=== PATIENT | male | born 1950 | race Caucasian/White ===

== ENCOUNTER 2017-01-23 09:24 | Inpatient (IN) | payer BC ==
--- NOTE | ~2017-01-23 | HP ---
History And Physical [place] [id number] [facility] [place]. [address] NAME: ISSA ALVAERZ SR : 48 STATUS : ADM IN [facility]#: [id number] AGE: 66 ADM/REG DATE : 01/23/17 MR#: [id number] REPORT SERV DATE: 01/23/17 DICTATED BY: JULISSA RIOS DATE: 01/23/17 REPORT STATUS : Draft TRANSCRIBED BY: MODTato DATE: 01/23/17 DATE OF ADMISSION: 01/23/2017 REASON FOR ADMISSION: Abdominal pain. PRIMARY CARE DOCTOR: Appears to be Dr. Rodriguez. The patient is also seeing Dr. Azar as a surgeon electively to get a cholecystectomy, which patient did not get. HISTORY OF PRESENT ILLNESS: This is a 66-year-old male who suffers from obesity, CAD with a CABG x2 by Dr. Land in 01/2016, hypertension, hyperlipidemia, depression, PTSD, history of nephrolithiasis, history of prediabetes, as well as having a recent history of colonoscopy done [address] Alva did that and apparently no polyps were found subjectively per patient. The patient comes in with about less than 24-hour duration of abdominal pain, more in the epigastric region and right upper quadrant and also in the hypogastric region as well. The patient states it is not postprandial as he has not tried to challenge himself with any food apparently. The patient in the past when he had this episode months ago, did have postprandial abdominal pain, saw Dr. Azar, his surgeon. Dr. Azar encouraged him to go ahead and get his cholecystectomy quickly. The patient stated he had some other matters to attend to and never received his cholecystectomy as planned. The patient denies any alcohol use or abuse. The patient denies any fevers or chills. Positive nausea. Positive bilious emesis today. No diarrhea. No chest pain. No chest pressure. No shortness of breath. PAST MEDICAL HISTORY: See above. PAST SURGICAL HISTORY: See above. ALLERGIES: NO KNOWN DRUG ALLERGIES. FAMILY HISTORY: Did have some heart disease in his family. No GI cancers. SOCIAL HISTORY: Lives alone. Has a girlfriend. Quit tobacco in 1980. No alcohol. No drug use. REVIEW OF SYSTEMS: Review of systems done, see HPI, otherwise negative. OBJECTIVE: VITAL SIGNS: He is currently 160/75, now 140; 98.1 temperature; 54 pulse; 20 History And Physical [address] [address] NAME: ISSA ALVAREZ SR : 48 STATUS : ADM IN PAT#: [id number] AGE: 66 ADM/REG DATE : 01/23/17 MR#: [id number] REPORT SERV DATE: 01/23/17 DICTATED BY: JULISSA RIOS DATE: 01/23/17 REPORT STATUS : Draft TRANSCRIBED BY: MODTato DATE: 01/23/17 respirations, and 95% room air. GENERAL: No acute distress. HEENT: PERRLA. No scleral icterus. CARDIOVASCULAR: Regular rate and rhythm. No murmur. RESPIRATORY: Decreased breath sounds bibasilar. No wheezes. No crackles. ABDOMEN: Does have some tenderness to palpation, more in the epigastric region. No Ybarra sign. Though he has some mild tenderness to palpation at the hypogastrium. EXTREMITIES: No edema. No ecchymosis. NEURO: GCS 15. A and O x4/4. PSYCH: Mildly anxious. LABORATORY DATA: White count 5.9, hemoglobin 15.8, 190,000 platelets. 4.4 potassium, 31 bicarb, 0.86 creatinine, 19 BUN, 141 sodium, 146 sugar. Lipase 19,000. Magnesium 2.2. Troponins negative. I am still waiting LFTs that were not done in the ER. Has an EKG that has some primary AV block, it has T-wave inversions in V2, V1, and aVL. I need a prior EKG to see if patient does not have any cardiac symptoms. ASSESSMENT AND PLAN: 1. Pancreatitis. 2. Question biliary pancreatitis given history of planned, but not done cholecystectomy. His surgeon is Dr. Azar. Please consult Dr. Azar if he has biliary pancreatitis. 3. Hypertension. 4. Hyperlipidemia. 5. Prediabetes. 6. SIRS criteria being met given respirations of 20, and at one time, has some mild tachycardia. 7. Coronary artery disease with CABG. PLAN: We will go ahead and admit this patient. I would prefer [address]. MRCP, right upper quadrant ultrasound as well to see if he has any choledocholithiasis, if so, he will need possible ERCP and cholecystectomy if he indeed has biliary pancreatitis. I am still awaiting his other LFTs. Consult Dr. Azar. Dr. Azar wanted to do a cholecystectomy on the patient. The patient got busy and did not do the planned cholecystectomy as an outpatient. Empiric Levaquin and Flagyl pending his ultrasound, Protonix 40 IV daily, LR 150 for 2 L and D5 LR 125. Accu-Cheks given prediabetes. See rest of my orders. All questions were answered. It took well over 60 minutes to do. Reference Epocrates and hi5. WST/MODL Julissa Rios DO / [id number] History And Physical [address] [address] NAME: KIMSOUMYA ALVAREZISSA ALVARADOS : 48 STATUS : ADM IN PAT#: [id number] AGE: 66 ADM/REG DATE : 01/23/17 MR#: [id number] REPORT SERV DATE: 01/23/17 DICTATED BY: JULISSA RIOS DATE: 01/23/17 REPORT STATUS : Draft TRANSCRIBED BY: BRE DATE: 01/23/17 CC: Leann Maurice,
--- NOTE | ~2017-01-23 | DS ---
Discharge Summary [place] [id number] [place]. [address] NAME: ISSA ALVAREZ SR : 48 STATUS : DIS IN PAT#: [id number] AGE: 66 ADM/REG DATE : 01/23/17 MR#: [id number] REPORT SERV DATE: 01/27/17 DICTATED BY: CODIE SANDOVAL DATE: 01/26/17 REPORT STATUS : Draft TRANSCRIBED BY: MODTato DATE: 01/26/17 ADMISSION DATE: 01/23/2017 DISCHARGE DATE: 01/26/2017 PCP, Mil Ruiz M.D. before, but now, is Shahbaz Rich DO. CONSULTING PHYSICIAN: Dr. Cottrell for GI and Dr. Azar for surgery. FINAL DIAGNOSES: 1. Acute biliary pancreatitis, improved. 2. Status post laparoscopic cholecystectomy for chronic cholecystitis and cholelithiasis. 3. Coronary artery disease with history of coronary artery bypass grafting x2. 4. Hypertension. 5. Obesity. 6. Post-traumatic stress disorder and depression. 7. Vitamin D deficiency. DIAGNOSTIC EXAMS: Chest x-ray showing no acute cardiopulmonary disease. MRI of the abdomen showing gallstones. No retained gallbladder duct or pancreatic duct stone. Moderate to severe pancreatitis, cardiomegaly. Tiny amount of fluid adjacent to the spleen possibly related to the pancreatitis. Incidental bilateral benign renal cyst. Gallbladder ultrasound showing gallstones, common bile duct and liver appeared normal. Pancreas, spleen attempted, not seen. Aorta limited. Unremarkable vena cava. HOSPITAL COURSE: Please refer to the H and P done by Dr. Adi Khalil dated on 01/23/2017. Briefly, this is a 66-year-old male, who comes in for abdominal pain. The patient has a history of CAD, hypertension, PTSD and was supposed to have a cholecystectomy electively, but refused at that time. The patient now comes in with 24 hours of abdominal pain, went to the emergency room, was found to have pancreatitis. The patient then got a GI and Surgery consultation, and once the pancreatitis is better, the patient underwent a laparoscopic cholecystectomy and tolerated it well. The patient is able to eat after surgery with stable vital signs, and we got clearance from both Surgery and GI for the patient to be discharged. So, we will be discharging the patient with the above diagnoses. He will follow up with Dr. Ruiz or Dr. Rich in one to two weeks. Follow up with Dr. Azar, Surgery in two weeks, and the patient will be continuing his home medications of vitamin D 2000 units a day, Lexapro 10 mg a day, metoprolol 25 mg twice a day, Nystatin powder p.r.n., potassium 20 mEq every morning with Lasix 20 mg twice a day, aspirin 81 mg a day, Crestor 5 mg a day, and he will get a prescription for Orcas 5/325 one tablet p.o. q.4 to 6 hours p.r.n. pain. This has been explained to him in front of his , and they agreed and understood the plan. TIME SPENT: 35 minutes. RLY/BRE Discharge Summary [address] [place]. [address] NAME: ISSA ALVAREZ SR : 48 STATUS : DIS IN PAT#: [id number] AGE: 66 ADM/REG DATE : 01/23/17 MR#: [id number] REPORT SERV DATE: 01/27/17 DICTATED BY: CODIE SANDOVAL DATE: 01/26/17 REPORT STATUS : Draft TRANSCRIBED BY: BRE DATE: 01/26/17 Codie Sandoval M.D. / [id number] CC: Leann Ring,
--- NOTE | ~2017-01-23 | OP ---
Record Of Operation [facility] [address] [place]. [address] NAME: ISSA ALVAREZ SR : 48 STATUS : ADM IN PAT#: [id number] AGE: 66 ADM/REG DATE : 01/23/17 MR#: [id number] REPORT SERV DATE: 01/25/17 DICTATED BY: ANDREAS ANTUNEZ DATE: 01/25/17 REPORT STATUS : Draft TRANSCRIBED BY: MODL DATE: 01/25/17 DATE OF PROCEDURE: 01/24/2017 PREOPERATIVE DIAGNOSES: 1. Chronic cholecystitis with cholelithiasis. 2. Biliary pancreatitis. POSTOPERATIVE DIAGNOSES: 1. Chronic cholecystitis with cholelithiasis. 2. Biliary pancreatitis. PROCEDURE: 1. Laparoscopic cholecystectomy (two-site). 2. Laparoscopic intraoperative cholangiogram. SURGEON: Andreas Antunez M.D. DESCRIPTION OF OPERATIVE PROCEDURE: The patient was brought to the operating suite, placed in supine position, where he underwent satisfactory general endotracheal anesthesia without incident. The skin of the abdomen was scrubbed, prepped, and draped in usual sterile fashion. 0.5% Marcaine with epinephrine was utilized as supplemental local anesthesia at all intended trocar sites. Initially, an infraumbilical incision was performed dissecting through the skin and subcutaneous tissue to the umbilical fascia. This was grasped with a Haley clamp and elevated and a disposable Veress insufflation needle was inserted through the umbilical fascia into the peritoneal cavity. Intraperitoneal tip location was next ascertained using the saline hanging drop method following which CO2 was insufflated for pressures of 15 mmHg throughout the case. After adequate insufflation pressure achieved, the Veress needle was removed, and a disposable bladed shielded 11 mm trocar was inserted through the umbilical fascia into the peritoneal cavity following which a rigid forward-viewing 10 mm laparoscope was inserted. Visualization of the intraabdominal parietes revealed no evidence of injury from initial insufflation or puncture. A cursory examination of the pelvis was normal. Attention was turned to the upper abdomen where additional 5 mm trocar was placed to the right of falciform ligament. An additional 5 mm grasping instrument inserted through the umbilical fascia next to the umbilical trocar. The gallbladder was visualized, it was chronically thick walled and inflamed, as well as some subacute inflammation. The fundus and body of the gallbladder grasped and elevated sequentially and duodenal and periduodenal adhesions to the infundibular portion of the gallbladder were dissected free with blunt and cautery dissection. This was supplemented later in the case of irrigation and aspiration. Dissection in triangle of Calot was successful in identifying, skeletonizing very thick cystic duct and cystic artery. Record Of Operation [facility] [address] [place]. [address] NAME: ISSA ALVAREZ SR : 48 STATUS : ADM IN PAT#: [id number] AGE: 66 ADM/REG DATE : 01/23/17 MR#: [id number] REPORT SERV DATE: 01/25/17 DICTATED BY: ANDREAS ANTUNEZ DATE: 01/25/17 REPORT STATUS : Draft TRANSCRIBED BY: MODTato DATE: 01/25/17 A single clip was placed on the gallbladder side of the cystic duct. A small enterotomy was created in the cystic duct. A percutaneously introduced cholangiosheath was inserted through the upper abdominal wall under direct visualization, through this was passed a saline flushed Arrow cholangiocatheter. Sequential fluoroscopic intraoperative cholangiography was next performed revealing excellent visualization of both the intrahepatic and extrahepatic biliary ductal system. Specifically, there was no ductal dilatation and aberrant ductal anatomy nor was there any note of filling defects and there was also noted free spillage of dye into the duodenum. The retaining clip was removed as well as the cholangiocatheter, and then the cystic duct was controlled with multiple applications of the Weck 5 mm polymer clip system and divided. Using spatula cautery dissection and blunt dissection, the peritoneal attachments to the gallbladder and the liver were divided, and the gallbladder was removed from the subhepatic space. Further irrigation and aspiration were used and the gallbladder was placed inside an Endo retrieval pouch. Nu-knit Surgicel was placed in liver bed. The trocar was removed. The gallbladder was retrieved through the umbilicus. It was morcellated and opened and found to contain very small 1 mm stones. CO2 was allowed to egress from peritoneal cavity. The umbilicus was closed with [id number] suture of 0 Vicryl, subcutaneous tissue closed at all sites with interrupted 4-0 Vicryl, running subcuticular stitch of 4-0 Vicryl for the skin. Dermabond skin adhesive placed. The patient tolerated the procedure well and was returned to PACU in stable condition. Termination of procedure, sponge, needle, lap, and instrument counts were correct x3. ESTIMATED BLOOD LOSS: 20-25 mL. WR/MODL Andreas Antunez M.D. / [id number] CC: James Terrazas M.D. Record Of [address] [address] NAME: ISSA ALVAREZ SR : 48 STATUS : ADM IN PAT#: [id number] AGE: 66 ADM/REG DATE : 01/23/17 MR#: [id number] REPORT SERV DATE: 01/25/17 DICTATED BY: ANDREAS ANTUNEZ DATE: 01/25/17 REPORT STATUS : Draft TRANSCRIBED BY: MODL DATE: 01/25/17 Shahbaz Rich DO
--- NOTE | ~2017-01-23 | CN ---
Consultation Report [address] [place]. [address] NAME: ISSA ALVAREZ SR : 48 STATUS : ADM IN PAT#: [id number] AGE: 66 ADM/REG DATE : 01/23/17 MR#: [id number] REPORT SERV DATE: 01/24/17 DICTATED BY: JEREMY BATEMAN DATE: 01/24/17 REPORT STATUS : Draft TRANSCRIBED BY: BRE DATE: 01/24/17 CONSULTATION DATE OF CONSULTATION: 01/24/2017 LOCATION: Bed 511. I am asked to see this gentleman with abdominal pain. HISTORY OF PRESENT ILLNESS: This 66-year-old gentleman has numerous medical problems. He is admitted at this time with epigastric and right upper quadrant pain. He has a known history of gallstones and has been advised to have cholecystectomy, which he has refused in the past. Currently, he denies abdominal pain, change in bowel habit, nausea or vomiting. He has an extensive past history including hypertension, coronary artery disease, history of kidney stones, and glucose intolerance. He has seen Dr. Mcgowan in the past. PHYSICAL EXAMINATION: CHEST: Clear to auscultation. CARDIAC: Regular rhythm without rubs or murmurs. ABDOMEN: Soft and nontender. Bowel sounds normal. No palpable mass. LAB WORK: Shows a white count and hemoglobin which are normal. Electrolytes are normal. Lipase is 19,000. EKGs are pending. IMPRESSION: 1. Abdominal pain. 2. Increased lipase consistent with pancreatitis. PLAN: Surgical consultation is underway. Dr. Mcgowan will follow this patient. Thank you for allowing me to see this gentleman. SEGUNDO/BRE Jeremy Bateman M.D. / [id number] Consultation Report [address] [place]. [address] NAME: ISSA ALVAREZ SR : 48 STATUS : ADM IN PAT#: [id number] AGE: 66 ADM/REG DATE : 01/23/17 MR#: [id number] REPORT SERV DATE: 01/24/17 DICTATED BY: JEREMY BATEMAN DATE: 01/24/17 REPORT STATUS : Draft TRANSCRIBED BY: BER DATE: 01/24/17 CC: Leann Maurice,
[~2017-01-23 09:24] MED LIST: ASAB PO; COENZYME Q10 PO; CRESTOR5 MG PO; FENESIN IR400 MG PO; FISH OIL PO; KDUR20 PO; KLONO1 PO; L20 PO; LEXAPRO10 PO; LIPITOR PO; LIPITOR80 MG PO; LISINOPRIL PO; LOP25 PO; NORCO1 TA1 PO; PHENYLEPHRIN10 MG PO; PRINZIDE1 TA1 PO; PROZAC PO; VITAMIN D PO; VITAMIN D31000 UNIT PO; ZOL100 PO
[2017-01-23 11:13] LABS: BASOPHILS 0.2 %; BASOPHILS ABSOLUTE 0.01 10/3/uL (0.0-0.16); EOSINOPHILS 0.3 %; EOSINOPHILS ABSOLUTE 0.02 10/3/uL (0.0-0.53); HEMATOCRIT 46.6 % (40.0-51.0); HEMOGLOBIN 15.8 g/dL (13.6-17.8); IMMATURE GRANULOCYTES 0.2 %; IMMATURE GRANULOCYTES ABSOLUTE 0.01 10/3/uL (0.0-0.11); LYMPHOCYTES 8.3 %; LYMPHOCYTES ABSOLUTE 0.49 10/3/uL (0.67-4.30); MEAN CORPUS HGB CONC 33.9 g/dL (32.0-36.0); MEAN CORPUSCULAR HEMOGLOB 31.2 pg (26.0-34.0); MEAN CORPUSCULAR VOLUME 92.1 fL (80-100); MEAN PLATELET VOLUME 9.7 fL (9.2-13.0); MONOCYTES 2.5 %; MONOCYTES ABSOLUTE 0.15 10/3/uL (0.21-1.20); NEUTROPHILS 88.5 %; NEUTROPHILS ABSOLUTE 5.24 10/3/uL (2.02-8.40); PLATELET COUNT 190 10/3/uL (150-400); RBC DISTRIBUTION WIDTH 12.4 % (12.0-16.0); RED CELL COUNT 5.06 10/6/uL (4.7-6.1)
[2017-01-23 11:14] LABS: MANUAL DIFF NO %; WHITE BLOOD CELLS 5.9 10/3/uL (4.5-10.5)
[2017-01-23 11:21] LABS: INTERNATIONAL NORMAL RATI 1.1 UNITS (-); PARTIAL THROMBO TIME 27.5 SEC (22.5-37.2)
[2017-01-23 11:22] LABS: PROTIME (NOT ORD) 13.9 SEC (12.0-14.5)
[2017-01-23 11:28] LABS: CALCIUM, SERUM 9.2 MG/DL (8.5-10.4); CHEST PAIN PROFILE TAT 0 Hrs 20 Mins; CHLORIDE, SERUM 102 MMOL/L (96-112); CO2 (CARBON DIOXIDE) 31 MMOL/L (24-34); CREATININE 0.86 MG/DL (0.70-1.30); GFR AFRICAN AMERICAN 103 ML/MIN (>=60); GFR NON AFRICAN AMERICAN 89 ML/MIN (>=60); POTASSIUM, SERUM 4.4 MMOL/L (3.5-5.3); SODIUM, SERUM 141 MMOL/L (135-148); TROPONIN I <0.02 NG/ML (<0.05)
[2017-01-23 11:29] LABS: BUN (BLOOD UREA NITROGEN) 19 MG/DL (6-23); GLUCOSE, SERUM 146 MG/DL (60-99)
[2017-01-23] MEDS ORDERED: KLOR-CON M2020 MEQ PO (12:11)
[2017-01-23] MEDS ORDERED: NYSTATPOW TOP (12:11)
[2017-01-23] MEDS ORDERED: LEXAPRO10 PO (12:12)
[2017-01-23] MEDS ORDERED: VITAMIN D31000 UNIT PO (12:12)
[2017-01-23] MEDS ORDERED: L20 PO (12:12)
[2017-01-23] MEDS ORDERED: LOP25 PO (12:13)
[2017-01-23] MEDS ORDERED: CRESTOR5 MG PO (12:13)
[2017-01-23] MEDS ORDERED: ASAB PO (12:13)
[2017-01-23] MEDS ORDERED: ALKA-SELTZER O1 EACH PO (12:14)
[2017-01-23 18:04] LABS: ALBUMIN 3.9 G/DL (3.5-5.0); SGPT(ALT) 399 U/L (5-65); TOTAL PROTEIN 7.4 G/DL (6.0-8.5)
[2017-01-23 18:05] LABS: ALKALINE PHOSPHATASE 117 U/L (45-117); DIRECT BILIRUBIN 0.4 MG/DL (0.0-0.4); INDIRECT BILIRUBIN(NOT ORDER) 0.8 MG/DL (0.1-0.9); SGOT(AST) 459 U/L (5-40); TOTAL BILIRUBIN 1.2 MG/DL (0-1.2)
[2017-01-23 18:32] LABS: B NATRIURETIC PEPTIDE (BNP) 23.1 PG/ML (< 100.0)
[2017-01-23 20:44] LABS: ALBUMIN 3.4 G/DL (3.5-5.0); ALKALINE PHOSPHATASE 120 U/L (45-117); BUN (BLOOD UREA NITROGEN) 17 MG/DL (6-23); CHLORIDE, SERUM 102 MMOL/L (96-112); CO2 (CARBON DIOXIDE) 33 MMOL/L (24-34); CREATININE 0.85 MG/DL (0.70-1.30); GFR AFRICAN AMERICAN 104 ML/MIN (>=60); GFR NON AFRICAN AMERICAN 90 ML/MIN (>=60); GLOBULIN 3.4 G/DL (2.5-4.1); PHOSPHORUS, SERUM 3.6 MG/DL (2.5-4.5); POTASSIUM, SERUM 4.6 MMOL/L (3.5-5.3); SGOT(AST) 295 U/L (5-40); SGPT(ALT) 385 U/L (5-65); SODIUM, SERUM 142 MMOL/L (135-148); TOTAL PROTEIN 6.8 G/DL (6.0-8.5); TROPONIN I <0.02 NG/ML (<0.05)
[2017-01-23 20:46] LABS: CALCIUM, SERUM 8.2 MG/DL (8.5-10.4); GLUCOSE, SERUM 83 MG/DL (60-99); TOTAL BILIRUBIN 0.7 MG/DL (0-1.2)
[2017-01-23 21:11] LABS: PROCALCITONIN 0.11 ng/mL (<0.5)
[2017-01-24 05:30] LABS: GLYCOHEMOGLOBIN (HbA1c) 5.4 % (4.7-6.1)
[2017-01-24 07:24] LABS: BASOPHILS 0.1 %; BASOPHILS ABSOLUTE 0.01 10/3/uL (0.0-0.16); EOSINOPHILS 1.5 %; HEMOGLOBIN 13.9 g/dL (13.6-17.8); IMMATURE GRANULOCYTES 0.1 %; IMMATURE GRANULOCYTES ABSOLUTE 0.01 10/3/uL (0.0-0.11); LYMPHOCYTES 20.3 %; LYMPHOCYTES ABSOLUTE 1.37 10/3/uL (0.67-4.30); MEAN CORPUS HGB CONC 33.4 g/dL (32.0-36.0); MEAN CORPUSCULAR HEMOGLOB 30.5 pg (26.0-34.0); MEAN CORPUSCULAR VOLUME 91.2 fL (80-100); MEAN PLATELET VOLUME 9.5 fL (9.2-13.0); MONOCYTES 4.7 %; MONOCYTES ABSOLUTE 0.32 10/3/uL (0.21-1.20); NEUTROPHILS 73.3 %; NEUTROPHILS ABSOLUTE 4.94 10/3/uL (2.02-8.40); PLATELET COUNT 149 10/3/uL (150-400); RED CELL COUNT 4.56 10/6/uL (4.7-6.1); WHITE BLOOD CELLS 6.8 10/3/uL (4.5-10.5)
[2017-01-24 07:28] LABS: HEMATOCRIT 41.6 % (40.0-51.0); MANUAL DIFF NO %
[2017-01-24 07:40] LABS: BUN (BLOOD UREA NITROGEN) 15 MG/DL (6-23); CALCIUM, SERUM 8.3 MG/DL (8.5-10.4); CHLORIDE, SERUM 105 MMOL/L (96-112); CO2 (CARBON DIOXIDE) 28 MMOL/L (24-34); GFR AFRICAN AMERICAN 106 ML/MIN (>=60); GFR NON AFRICAN AMERICAN 92 ML/MIN (>=60); GLUCOSE, SERUM 97 MG/DL (60-99); PHOSPHORUS, SERUM 3.1 MG/DL (2.5-4.5); POTASSIUM, SERUM 4.3 MMOL/L (3.5-5.3); SODIUM, SERUM 141 MMOL/L (135-148)
[2017-01-25 06:35] LABS: BASOPHILS 0.1 %; BASOPHILS ABSOLUTE 0.01 10/3/uL (0.0-0.16); EOSINOPHILS 3.6 %; EOSINOPHILS ABSOLUTE 0.24 10/3/uL (0.0-0.53); HEMATOCRIT 42.5 % (40.0-51.0); HEMOGLOBIN 14.2 g/dL (13.6-17.8); LYMPHOCYTES 18.7 %; LYMPHOCYTES ABSOLUTE 1.26 10/3/uL (0.67-4.30); MEAN CORPUS HGB CONC 33.4 g/dL (32.0-36.0); MEAN CORPUSCULAR HEMOGLOB 30.9 pg (26.0-34.0); MEAN CORPUSCULAR VOLUME 92.6 fL (80-100); MEAN PLATELET VOLUME 9.2 fL (9.2-13.0); MONOCYTES 7.4 %; NEUTROPHILS 70.2 %; NEUTROPHILS ABSOLUTE 4.72 10/3/uL (2.02-8.40); PLATELET COUNT 150 10/3/uL (150-400); RBC DISTRIBUTION WIDTH 12.8 % (12.0-16.0); RED CELL COUNT 4.59 10/6/uL (4.7-6.1); WHITE BLOOD CELLS 6.7 10/3/uL (4.5-10.5)
[2017-01-25 06:37] LABS: MANUAL DIFF NO %
[2017-01-25 06:42] LABS: A/G RATIO 0.8 (0.7-1.9); ALBUMIN 2.9 G/DL (3.5-5.0); ALKALINE PHOSPHATASE 96 U/L (45-117); BUN (BLOOD UREA NITROGEN) 8 MG/DL (6-23); CALCIUM, SERUM 8.7 MG/DL (8.5-10.4); CHLORIDE, SERUM 103 MMOL/L (96-112); CO2 (CARBON DIOXIDE) 29 MMOL/L (24-34); CREATININE 0.73 MG/DL (0.70-1.30); GFR AFRICAN AMERICAN 110 ML/MIN (>=60); GFR NON AFRICAN AMERICAN 95 ML/MIN (>=60); GLOBULIN 3.5 G/DL (2.5-4.1); GLUCOSE, SERUM 103 MG/DL (60-99); POTASSIUM, SERUM 3.7 MMOL/L (3.5-5.3); SGOT(AST) 83 U/L (5-40); SGPT(ALT) 194 U/L (5-65); SODIUM, SERUM 140 MMOL/L (135-148); TOTAL BILIRUBIN 0.8 MG/DL (0-1.2); TOTAL PROTEIN 6.4 G/DL (6.0-8.5)
[2017-01-26 06:50] LABS: BASOPHILS 0 %; EOSINOPHILS 0 %; HEMATOCRIT 39.4 % (40.0-51.0); HEMOGLOBIN 13.3 g/dL (13.6-17.8); IMMATURE GRANULOCYTES 0.2 %; IMMATURE GRANULOCYTES ABSOLUTE 0.02 10/3/uL (0.0-0.11); LYMPHOCYTES 8.5 %; LYMPHOCYTES ABSOLUTE 0.92 10/3/uL (0.67-4.30); MEAN CORPUS HGB CONC 33.8 g/dL (32.0-36.0); MEAN CORPUSCULAR HEMOGLOB 31.1 pg (26.0-34.0); MEAN CORPUSCULAR VOLUME 92.1 fL (80-100); MEAN PLATELET VOLUME 9.4 fL (9.2-13.0); MONOCYTES 5.7 %; MONOCYTES ABSOLUTE 0.62 10/3/uL (0.21-1.20); NEUTROPHILS 85.6 %; NEUTROPHILS ABSOLUTE 9.27 10/3/uL (2.02-8.40); PLATELET COUNT 165 10/3/uL (150-400); RBC DISTRIBUTION WIDTH 12.5 % (12.0-16.0); RED CELL COUNT 4.28 10/6/uL (4.7-6.1)
[2017-01-26 06:54] LABS: MANUAL DIFF NO %; WHITE BLOOD CELLS 10.8 10/3/uL (4.5-10.5)
[2017-01-26 07:11] LABS: A/G RATIO 0.8 (0.7-1.9); ALBUMIN 2.7 G/DL (3.5-5.0); ALKALINE PHOSPHATASE 87 U/L (45-117); CALCIUM, SERUM 8.4 MG/DL (8.5-10.4); CHLORIDE, SERUM 105 MMOL/L (96-112); CO2 (CARBON DIOXIDE) 27 MMOL/L (24-34); CREATININE 0.71 MG/DL (0.70-1.30); GFR AFRICAN AMERICAN 112 ML/MIN (>=60); GFR NON AFRICAN AMERICAN 96 ML/MIN (>=60); GLOBULIN 3.5 G/DL (2.5-4.1); GLUCOSE, SERUM 103 MG/DL (60-99); SGPT(ALT) 145 U/L (5-65); SODIUM, SERUM 141 MMOL/L (135-148); TOTAL BILIRUBIN 0.5 MG/DL (0-1.2); TOTAL PROTEIN 6.2 G/DL (6.0-8.5)
[2017-01-26 07:12] LABS: BUN (BLOOD UREA NITROGEN) 12 MG/DL (6-23); POTASSIUM, SERUM 4.6 MMOL/L (3.5-5.3)
[2017-01-26 07:14] LABS: SGOT(AST) 61 U/L (5-40)
[2017-01-26] MEDS ORDERED: NORCO1 TA1 PO (14:44)
== END 2017-01-26 15:24 | disposition home or self-care (01) | DRG 853 ==
LOC: ER 09:24 → 5SO 13:15
PROVIDERS: Hospitalist; Internal Medicine; Physician Assistant; Specialist
PROC: 0FT44ZZ Resection of Gallbladder, Percutaneous Endoscopic Approach (ICD-10-PCS; principal; 2017-01-23)
PROC: BF101ZZ Fluoroscopy of Bile Ducts using Low Osmolar Contrast (ICD-10-PCS; 2017-01-23)
DX: A41.9 Sepsis, unspecified organism (principal); K85.10 Biliary acute pancreatitis without necrosis or infection; K80.10 Calculus of gallbladder with chronic cholecystitis without obstruction; I10 Essential (primary) hypertension; E78.5 Hyperlipidemia, unspecified; R73.03 Prediabetes; I25.10 Atherosclerotic heart disease of native coronary artery without angina pectoris; F32.9 Major depressive disorder, single episode, unspecified; F43.12 Post-traumatic stress disorder, chronic; E55.9 Vitamin D deficiency, unspecified; Z87.442 Personal history of urinary calculi; Z95.1 Presence of aortocoronary bypass graft; Z82.49 Family history of ischemic heart disease and other diseases of the circulatory system; Z79.82 Long term (current) use of aspirin; Z79.899 Other long term (current) drug therapy
CPT/HCPCS: 71010; 74181; 74300; 76705; 80048; 80053; 80076; 82150; 82962; 83036; 83690; 83735; 83880; 84100; 84145; 84443; 84484; 85025; 85610; 85730; 88304; 93005; 96374; 99285; A9270-GY; C9113; J1956; J2250; J2405; J2710; J3010; Q9967